=== PATIENT | male | born 1930 | race Caucasian/White ===

== ENCOUNTER 2016-12-11 09:59 | Day surgery (SDC) | payer MEDICARE, OTHER ==
[~2016-12-11] VITALS: Ht 198.1 cm; Wt 156.9 kg
[~2016-12-11 09:59] MED LIST: ALDACTONE25 MG PO; ASP OR; BACTRIM DS1 TAB OR; BENAZEPRIL10 MG PO; COREG25 MG PO; COUMADIN7.5 MG PO; EC-NAPROSYN500 MG OR; K-PHO1 OR; LANOXIN0.25 MG PO; LASIX 40 MG40 MG/TAB PO; LASIX40 MG PO; LISINOPRIL2.5 MG PO; LOPRESSOR 550 MG/TAB PO; LORTAB 5 OR; MACROBID100 MG PO; PROAIR HFA IN; SIMVASTATIN40 MG OR; TRAMADOL HCL50 MG PO; ULTRAM50 MG OR; VANTIN200 M1 PO; WARFARIN SODIUM5 MG PO
[2016-12-11] MEDS ORDERED: FLOMAX0.4 M1 PO (11:00)
[2016-12-11] MEDS ORDERED: KETOCONAZOLE2 % EX (11:01)
[2016-12-11] MEDS ORDERED: IRON325 M1 PO (11:01)
[2016-12-11] MEDS ORDERED: ELDERTONIC PO (11:02)
[2016-12-11] MEDS ORDERED: WARFARIN7.5 MG PO (11:10)
[2016-12-11 11:21] LABS: HEMATOCRIT 31.6 % (39.0-50.0); HEMOGLOBIN 10.1 g/dl (14.0-18.0); IMMATURE GRANULOCYTES 0.3 % (0.0-1.0); MEAN CELL VOLUME 95.2 fL CALC (80.0-100.0); MEAN CORPUSCULAR HGB 30.4 pG CALC (26.0-32.0); NEUT# 5.94 thou/uL (1.82-7.42); RED BLOOD COUNT 3.32 mill/uL (4.70-6.10); RED CELL DISTRI WIDTH 13.6 % (11.5-15.5)
[2016-12-11 11:43] LABS: ACT PARTIAL THROMBO TIME 27.5 SECONDS (20.0-32.5); INTERNATIONAL NORMALIZED RATIO 1.1 RATIO (0.7-1.3); PROTHROMBIN TIME 11.7 SECONDS (9.0-12.5)
[2016-12-11 11:48] LABS: ANION GAP 12 (6-22 (CALC)); BUN 27 mg/dL (8-23); BUN/CREATININE RATIO 29 (12-20 (CALC)); CALCIUM 8.8 mg/dL (8.4-10.2); CARBON DIOXIDE 27 mmol/l (22-30); CHLORIDE 108 mmol/l (95-108); CREATININE 0.9 mg/dL (0.7-1.3); GFR > 60 ML/MIN (>=60 (CALC)); GFR FOR AFR.AMER. > 60 ML/MIN (>=60 (CALC)); GLUCOSE 93 mg/dL (82-115); POTASSIUM 4.3 mmol/l (3.5-5.1); SODIUM 142 mmol/l (137-146)
[2016-12-11 17:02] VITALS: BP 138/66
== END 2016-12-11 16:54 ==
LOC: ORM 09:59
PROVIDERS: ATTEND Urology
PROC: 0T9B00Z Drainage of Bladder with Drainage Device, Open Approach (ICD-10-PCS; principal; 2016-12-11)
DX: T83.89XA Other specified complication of genitourinary prosthetic devices, implants and grafts, initial encounter (principal); N48.89 Other specified disorders of penis; N31.9 Neuromuscular dysfunction of bladder, unspecified; N40.1 Benign prostatic hyperplasia with lower urinary tract symptoms; R33.8 Other retention of urine; F03.90 Unspecified dementia, unspecified severity, without behavioral disturbance, psychotic disturbance, mood disturbance, and anxiety; E66.01 Morbid (severe) obesity due to excess calories; I48.91 Unspecified atrial fibrillation; I12.9 Hypertensive chronic kidney disease with stage 1 through stage 4 chronic kidney disease, or unspecified chronic kidney disease; N18.9 Chronic kidney disease, unspecified; E78.5 Hyperlipidemia, unspecified; Y84.6 Urinary catheterization as the cause of abnormal reaction of the patient, or of later complication, without mention of misadventure at the time of the procedure; Z87.891 Personal history of nicotine dependence; Z79.01 Long term (current) use of anticoagulants

== ENCOUNTER 2017-02-12 11:45 | Emergency (ER) | payer MEDICARE, OTHER ==
[~2017-02-12] VITALS: Ht 198.1 cm; Wt 136.6 kg
[~2017-02-12 11:45] MED LIST changes: +ELDERTONIC PO; +FLOMAX0.4 M1 PO; +IRON325 M1 PO; +KETOCONAZOLE2 % EX; +WARFARIN7.5 MG PO
[2017-02-12 15:07] VITALS: BP 103/57
== END 2017-02-12 15:15 | disposition home or self-care (01) ==
LOC: ED 11:45
PROC: 0T9B70Z Drainage of Bladder with Drainage Device, Via Natural or Artificial Opening (ICD-10-PCS; principal; 2017-02-12)
DX: T83.020A Displacement of cystostomy catheter, initial encounter (principal); I11.0 Hypertensive heart disease with heart failure; I50.9 Heart failure, unspecified; I48.91 Unspecified atrial fibrillation; J44.9 Chronic obstructive pulmonary disease, unspecified; J45.909 Unspecified asthma, uncomplicated; I25.2 Old myocardial infarction; F03.90 Unspecified dementia, unspecified severity, without behavioral disturbance, psychotic disturbance, mood disturbance, and anxiety; M19.90 Unspecified osteoarthritis, unspecified site; Y84.6 Urinary catheterization as the cause of abnormal reaction of the patient, or of later complication, without mention of misadventure at the time of the procedure

== ENCOUNTER 2017-02-21 11:44 | Day surgery (SDC) | payer MEDICARE, OTHER ==
[~2017-02-21] VITALS: Ht 208.3 cm; Wt 127.0 kg
[~2017-02-21 11:44] MED LIST changes: +ATIVAN0.5 MG PO; +COUMADIN5 MG PO; +ECK ACETAMIN325 MG PO; +GENTEAL TEARS OU; +METOPROL TAR100 MG PO; +MILK OF MAG30 ML/UDC PO; +PETROLATUM TOP; +ROBITUSSIN200 MG/10 PO; +ZOLOFT100 MG PO
[2017-02-21 16:23] VITALS: BP 140/65
== END 2017-02-21 16:15 ==
LOC: ORM 11:44
PROVIDERS: ATTEND Urology
PROC: 0T9B00Z Drainage of Bladder with Drainage Device, Open Approach (ICD-10-PCS; principal; 2017-02-21)
DX: N99.518 Other cystostomy complication (principal); R33.9 Retention of urine, unspecified; Y83.3 Surgical operation with formation of external stoma as the cause of abnormal reaction of the patient, or of later complication, without mention of misadventure at the time of the procedure; Y92.129 Unspecified place in nursing home as the place of occurrence of the external cause; T83.518D Infection and inflammatory reaction due to other urinary catheter, subsequent encounter; Y84.6 Urinary catheterization as the cause of abnormal reaction of the patient, or of later complication, without mention of misadventure at the time of the procedure

== ENCOUNTER 2017-09-30 10:33 | Inpatient (IN) | payer MEDICARE, OTHER ==
[~2017-09-30] VITALS: Ht 195.6 cm; Wt 149.5 kg
[2017-09-30 11:27] LABS: HEMATOCRIT 33.8 % (39.0-50.0); HEMOGLOBIN 11.1 g/dl (14.0-18.0); IMMATURE GRANULOCYTES 0.4 % (0.0-1.0); MEAN CELL VOLUME 92.9 fL CALC (80.0-100.0); MEAN CORPUSCULAR HGB 30.5 pG CALC (26.0-32.0); MEAN CORPUSCULAR HGB CONC 32.8 g/L CALC (32.0-36.0); NEUT# 5.31 thou/uL (1.82-7.42); RED BLOOD COUNT 3.64 mill/uL (4.70-6.10); RED CELL DISTRI WIDTH 15.8 % (11.5-15.5)
[2017-09-30 11:35] LABS: INTERNATIONAL NORMALIZED RATIO 2.6 RATIO (0.7-1.3); PROTHROMBIN TIME 29.8 SECONDS (9.0-12.5)
[2017-09-30 11:36] LABS: ALBUMIN 3.9 g/dL (3.2-5.0); ALKALINE PHOSPHATASE 88 u/l (38-126); ANION GAP 17 (6-22 (CALC)); BILIRUBIN, TOTAL 1.1 mg/dL (0.0-1.4); BUN 27 mg/dL (8-23); BUN/CREATININE RATIO 26 (12-20 (CALC)); CALCIUM 9.5 mg/dL (8.4-10.2); CARBON DIOXIDE 25 mmol/l (22-30); CHLORIDE 105 mmol/l (95-108); CREATININE 1.1 mg/dL (0.7-1.3); GFR > 60 ML/MIN (>=60 (CALC)); GFR FOR AFR.AMER. > 60 ML/MIN (>=60 (CALC)); GLUCOSE 139 mg/dL (82-115); POTASSIUM 3.4 mmol/l (3.5-5.1); SGOT/AST 28 u/l (19-48); SGPT/ALT 22 u/l (11-66); SODIUM 144 mmol/l (137-146); TOTAL PROTEIN 7.9 g/dL (6.3-8.2)
[2017-09-30 11:48] LABS: MYOGLOBIN 182 ng/mL (0 - 121)
[2017-09-30 12:18] LABS: URINE BILIRUBIN - DIPSTICK NEGATIVE (NEGATIVE); URINE BLOOD DIPSTICK LARGE (NEGATIVE); URINE CLARITY CLOUDY; URINE COLOR YELLOW; URINE GLUCOSE - DIPSTICK NEGATIVE (NEGATIVE); URINE KETONE NEGATIVE (NEGATIVE); URINE LEUK ESTERASE SMALL (NEGATIVE); URINE NITRITE - DIPSTICK NEGATIVE (Negative); URINE PH 5.5 (4.5-8.0); URINE PROTEIN - DIPSTICK NEGATIVE (NEG-TRACE); URINE UROBILINOGEN - DIPSTICK 0.2 E.U./dL (0.2)
[2017-09-30 12:19] LABS: URINE BACTERIA FEW hpf; URINE EPITHELIAL CELLS FEW EPI/hpf (0-FEW); URINE RBC 25-50 RBC/hpf (0-5)
[2017-09-30] MEDS ORDERED: ELDERTONIC PO (13:20)
[2017-09-30] MEDS ORDERED: K-DUR/KLOR-CON20 MEQ PO (13:26)
[2017-09-30 16:00] VITALS: BP 111/62
[2017-09-30 19:10] VITALS: BP 118/74
[2017-09-30 22:00] VITALS: BP 113/64
[2017-10-01] VITALS (21 sets, daily range): BP systolic 80–145; BP diastolic 41–90
[2017-10-01 05:14] LABS: HEMOGLOBIN 9.9 g/dl (14.0-18.0); IMMATURE GRANULOCYTES 0.4 % (0.0-1.0); MEAN CELL VOLUME 94.2 fL CALC (80.0-100.0); MEAN CORPUSCULAR HGB 30.1 pG CALC (26.0-32.0); MEAN CORPUSCULAR HGB CONC 31.9 g/L CALC (32.0-36.0); NEUT# 8.88 thou/uL (1.82-7.42); RED BLOOD COUNT 3.29 mill/uL (4.70-6.10); RED CELL DISTRI WIDTH 15.8 % (11.5-15.5)
[2017-10-01 05:32] LABS: ANION GAP 13 (6-22 (CALC)); BUN 31 mg/dL (8-23); BUN/CREATININE RATIO 30 (12-20 (CALC)); CALCIUM 9.1 mg/dL (8.4-10.2); CARBON DIOXIDE 24 mmol/l (22-30); CHLORIDE 112 mmol/l (95-108); CREATININE 1.1 mg/dL (0.7-1.3); GFR > 60 ML/MIN (>=60 (CALC)); GFR FOR AFR.AMER. > 60 ML/MIN (>=60 (CALC)); GLUCOSE 130 mg/dL (82-115); POTASSIUM 2.9 mmol/l (3.5-5.1); SODIUM 146 mmol/l (137-146)
[2017-10-01 09:23] LABS: INTERNATIONAL NORMALIZED RATIO 3.3 RATIO (0.7-1.3); PROTHROMBIN TIME 38.2 SECONDS (9.0-12.5)
[2017-10-02] VITALS (22 sets, daily range): BP systolic 91–140; BP diastolic 46–93
[2017-10-02 05:08] LABS: ANION GAP 16 (6-22 (CALC)); BUN 36 mg/dL (8-23); BUN/CREATININE RATIO 35 (12-20 (CALC)); CARBON DIOXIDE 22 mmol/l (22-30); CHLORIDE 115 mmol/l (95-108); CREATININE 1.1 mg/dL (0.7-1.3); GFR > 60 ML/MIN (>=60 (CALC)); GFR FOR AFR.AMER. > 60 ML/MIN (>=60 (CALC)); GLUCOSE 118 mg/dL (82-115); POTASSIUM 3.5 mmol/l (3.5-5.1); SODIUM 150 mmol/l (137-146)
[2017-10-02 05:14] LABS: HEMOGLOBIN 9.7 g/dl (14.0-18.0); MEAN CELL VOLUME 95.1 fL CALC (80.0-100.0); MEAN CORPUSCULAR HGB 29.8 pG CALC (26.0-32.0); MEAN CORPUSCULAR HGB CONC 31.3 g/L CALC (32.0-36.0); RED BLOOD COUNT 3.26 mill/uL (4.70-6.10); RED CELL DISTRI WIDTH 15.9 % (11.5-15.5)
[2017-10-02 09:01] LABS: INTERNATIONAL NORMALIZED RATIO 4.3 RATIO (0.7-1.3)
[2017-10-02 09:04] LABS: PROTHROMBIN TIME 49.2 SECONDS (9.0-12.5)
[2017-10-03] VITALS (13 sets, daily range): BP systolic 93–143; BP diastolic 63–92
[2017-10-03 00:36] LABS: C. DIFFICILE TOXIN A&B NEGATIVE (NEGATIVE)
[2017-10-03 04:43] LABS: ANION GAP 16 (6-22 (CALC)); BUN 40 mg/dL (8-23); BUN/CREATININE RATIO 33 (12-20 (CALC)); CALCIUM 9.1 mg/dL (8.4-10.2); CARBON DIOXIDE 20 mmol/l (22-30); CHLORIDE 114 mmol/l (95-108); CREATININE 1.2 mg/dL (0.7-1.3); GFR 58 ML/MIN (>=60 (CALC)); GFR FOR AFR.AMER. > 60 ML/MIN (>=60 (CALC)); GLUCOSE 104 mg/dL (82-115); POTASSIUM 3.4 mmol/l (3.5-5.1); SODIUM 147 mmol/l (137-146)
[2017-10-03 04:54] LABS: INTERNATIONAL NORMALIZED RATIO 2.8 RATIO (0.7-1.3); PROTHROMBIN TIME 31.7 SECONDS (9.0-12.5)
[2017-10-03 05:07] LABS: HEMATOCRIT 32.2 % (39.0-50.0); HEMOGLOBIN 10.1 g/dl (14.0-18.0); MEAN CELL VOLUME 95.5 fL CALC (80.0-100.0); MEAN CORPUSCULAR HGB CONC 31.4 g/L CALC (32.0-36.0); RED BLOOD COUNT 3.37 mill/uL (4.70-6.10); RED CELL DISTRI WIDTH 16.1 % (11.5-15.5)
[2017-10-04] VITALS (12 sets, daily range): BP systolic 107–170; BP diastolic 53–107
[2017-10-04 05:32] LABS: HEMATOCRIT 33.8 % (39.0-50.0); HEMOGLOBIN 10.6 g/dl (14.0-18.0); MEAN CELL VOLUME 93.4 fL CALC (80.0-100.0); MEAN CORPUSCULAR HGB 29.3 pG CALC (26.0-32.0); MEAN CORPUSCULAR HGB CONC 31.4 g/L CALC (32.0-36.0); RED BLOOD COUNT 3.62 mill/uL (4.70-6.10)
[2017-10-04 05:33] LABS: RED CELL DISTRI WIDTH 15.9 % (11.5-15.5)
[2017-10-04 05:37] LABS: ANION GAP 17 (6-22 (CALC)); BUN 35 mg/dL (8-23); BUN/CREATININE RATIO 30 (12-20 (CALC)); CALCIUM 9.3 mg/dL (8.4-10.2); CARBON DIOXIDE 23 mmol/l (22-30); CHLORIDE 111 mmol/l (95-108); CREATININE 1.2 mg/dL (0.7-1.3); GFR 58 ML/MIN (>=60 (CALC)); GFR FOR AFR.AMER. > 60 ML/MIN (>=60 (CALC)); GLUCOSE 140 mg/dL (82-115); POTASSIUM 3.4 mmol/l (3.5-5.1); SODIUM 148 mmol/l (137-146)
[2017-10-04 05:40] LABS: INTERNATIONAL NORMALIZED RATIO 1.7 RATIO (0.7-1.3); PROTHROMBIN TIME 19.4 SECONDS (9.0-12.5)
[2017-10-05] VITALS (11 sets, daily range): BP systolic 107–150; BP diastolic 71–95
[2017-10-05 05:46] LABS: HEMOGLOBIN 10.9 g/dl (14.0-18.0); MEAN CELL VOLUME 93.4 fL CALC (80.0-100.0); MEAN CORPUSCULAR HGB 29.9 pG CALC (26.0-32.0); MEAN CORPUSCULAR HGB CONC 32.1 g/L CALC (32.0-36.0); RED BLOOD COUNT 3.64 mill/uL (4.70-6.10); RED CELL DISTRI WIDTH 15.5 % (11.5-15.5)
[2017-10-05 05:50] LABS: INTERNATIONAL NORMALIZED RATIO 1.9 RATIO (0.7-1.3); PROTHROMBIN TIME 21.9 SECONDS (9.0-12.5)
[2017-10-05 05:51] LABS: ANION GAP 16 (6-22 (CALC)); BUN 33 mg/dL (8-23); BUN/CREATININE RATIO 29 (12-20 (CALC)); CALCIUM 9.4 mg/dL (8.4-10.2); CARBON DIOXIDE 25 mmol/l (22-30); CHLORIDE 110 mmol/l (95-108); CREATININE 1.1 mg/dL (0.7-1.3); GFR > 60 ML/MIN (>=60 (CALC)); GFR FOR AFR.AMER. > 60 ML/MIN (>=60 (CALC)); GLUCOSE 156 mg/dL (82-115); POTASSIUM 3.2 mmol/l (3.5-5.1); SODIUM 148 mmol/l (137-146)
[2017-10-06] VITALS (13 sets, daily range): BP systolic 122–154; BP diastolic 73–99
[2017-10-06 09:38] LABS: ANION GAP 16 (6-22 (CALC)); BUN 32 mg/dL (8-23); BUN/CREATININE RATIO 32 (12-20 (CALC)); CALCIUM 9.6 mg/dL (8.4-10.2); CARBON DIOXIDE 26 mmol/l (22-30); CHLORIDE 112 mmol/l (95-108); GFR > 60 ML/MIN (>=60 (CALC)); GFR FOR AFR.AMER. > 60 ML/MIN (>=60 (CALC)); GLUCOSE 116 mg/dL (82-115); POTASSIUM 3.3 mmol/l (3.5-5.1); SODIUM 151 mmol/l (137-146)
[2017-10-07] VITALS (16 sets, daily range): BP systolic 124–170; BP diastolic 71–103
[2017-10-07 04:35] LABS: INTERNATIONAL NORMALIZED RATIO 2.1 RATIO (0.7-1.3); PROTHROMBIN TIME 23.4 SECONDS (9.0-12.5)
[2017-10-07 08:44] LABS: HEMATOCRIT 38.4 % (39.0-50.0); HEMOGLOBIN 11.9 g/dl (14.0-18.0); IMMATURE GRANULOCYTES 1.1 % (0.0-1.0); MEAN CELL VOLUME 95.5 fL CALC (80.0-100.0); MEAN CORPUSCULAR HGB 29.6 pG CALC (26.0-32.0); NEUT# 12.29 thou/uL (1.82-7.42); RED BLOOD COUNT 4.02 mill/uL (4.70-6.10); RED CELL DISTRI WIDTH 16.5 % (11.5-15.5)
[2017-10-07 08:51] LABS: ANION GAP 17 (6-22 (CALC)); BUN 35 mg/dL (8-23); BUN/CREATININE RATIO 30 (12-20 (CALC)); CALCIUM 9.8 mg/dL (8.4-10.2); CARBON DIOXIDE 27 mmol/l (22-30); CHLORIDE 111 mmol/l (95-108); CREATININE 1.2 mg/dL (0.7-1.3); GFR 58 ML/MIN (>=60 (CALC)); GFR FOR AFR.AMER. > 60 ML/MIN (>=60 (CALC)); GLUCOSE 154 mg/dL (82-115); MAGNESIUM 2.4 mg/dL (1.6-2.3); POTASSIUM 3.5 mmol/l (3.5-5.1); SODIUM 152 mmol/l (137-146)
[2017-10-08 04:28] VITALS: BP 137/97
[2017-10-08 06:08] VITALS: BP 113/81
[2017-10-08 06:14] LABS: INTERNATIONAL NORMALIZED RATIO 2.6 RATIO (0.7-1.3); PROTHROMBIN TIME 30.1 SECONDS (9.0-12.5)
[2017-10-08 07:00] VITALS: BP 137/85
[2017-10-08 09:00] VITALS: BP 140/84
[2017-10-08 11:00] VITALS: BP 152/73
[2017-10-08 13:00] VITALS: BP 109/74
== END 2017-10-08 14:05 | disposition hospice, inpatient (51) | DRG 177 ==
LOC: ED 10:33 → ED-I 14:23 → ED 14:42 → ICU 14:43
PROVIDERS: Emergency Medicine; Internal Medicine; Nurse Practitioner Family; ADMIT Internal Medicine; ATTEND Internal Medicine
PROC: 0T9B70Z Drainage of Bladder with Drainage Device, Via Natural or Artificial Opening (ICD-10-PCS; principal; 2017-09-30)
PROC: 5A09457 Assistance with Respiratory Ventilation, 24-96 Consecutive Hours, Continuous Positive Airway Pressure (ICD-10-PCS; 2017-09-30)
DX: J15.211 Pneumonia due to Methicillin susceptible Staphylococcus aureus (principal); I50.23 Acute on chronic systolic (congestive) heart failure; J96.21 Acute and chronic respiratory failure with hypoxia; I13.0 Hypertensive heart and chronic kidney disease with heart failure and stage 1 through stage 4 chronic kidney disease, or unspecified chronic kidney disease; I48.2 Chronic atrial fibrillation; Z99.81 Dependence on supplemental oxygen; E66.01 Morbid (severe) obesity due to excess calories; D63.8 Anemia in other chronic diseases classified elsewhere; I44.7 Left bundle-branch block, unspecified; E87.6 Hypokalemia; Z74.01 Bed confinement status; Z99.3 Dependence on wheelchair; M17.0 Bilateral primary osteoarthritis of knee; Z68.28 Body mass index [BMI] 28.0-28.9, adult; Z51.5 Encounter for palliative care; N18.9 Chronic kidney disease, unspecified; Y95 Nosocomial condition; Z66 Do not resuscitate; Z87.891 Personal history of nicotine dependence; Z79.01 Long term (current) use of anticoagulants